=== PATIENT | female | born 1985 | race Caucasian/White ===

== ENCOUNTER → 2016-09-14 | Outpatient (CLI) | payer OTHER | LOC: BMCIMAGING 11:04 | PROVIDERS: ATTEND Registered Nurse General Practice | DX: M51.36 Other intervertebral disc degeneration, lumbar region (principal); M46.97 Unspecified inflammatory spondylopathy, lumbosacral region ==

== ENCOUNTER 2016-09-25 17:09 | Emergency (ER) | payer OTHER ==
[2016-09-25 17:17] VITALS: BP 131/95; PULSE 76; RESP 18; TEMP 98.2; O2SAT 97
--- NOTE | 2016-09-25 18:07 | EDPHY ---
H & P Stated Complaint: 2 weeks r scciatic type leg pain/seen x2 at ed's/meds not helping Time Seen by Provider: 09/25/16 17:26 HPI/ROS: CHIEF COMPLAINT: Right leg pain HISTORY OF PRESENT ILLNESS: 31-year-old female presents emergency department complaining of worsening right-sided buttock and leg pain. Patient reports she has been seen by her primary care doctor and Emergency Department in [place] and diagnosed with sciatica. Patient started a Medrol Dosepak yesterday and was prescribed baclofen. Patient reports her pain is not improving. She was referred to a neurosurgeon though has not made this appointment. Patient denies fevers, no loss of control of her bowel or bladder, no saddle anesthesias. Patient had "back surgery" 11 years ago for 2 herniated discs. She reports she has had residual numbness in her right foot since this time. Patient reports she also has chronic pain down this right leg though it is significantly worse over the past week. REVIEW OF SYSTEMS: A comprehensive 10 point review of systems is otherwise negative aside from elements mentioned in the history of present illness. Source: Patient Exam Limitations: No limitations - Personal History LMP (Females 10-55): Extended Cycle BCP/Inj Current Tetanus/Diphtheria Vaccine: Yes Tetanus Vaccine Date: WITHIN 10 YEARS - Medical/Surgical History Hx Asthma: No Hx Chronic Respiratory Disease: No Hx Diabetes: No Hx Cardiac Disease: No Hx Renal Disease: No Hx Cirrhosis: No Hx Alcoholism: No Hx HIV/AIDS: No Hx Splenectomy or Spleen Trauma: No Other PMH: back surg - Social History Smoking Status: Never smoked - Physical Exam Exam: Physical Exam Gen: Alert and Oriented, NAD HEENT: PERRL, moist mucous membranes NECK: no meningismus CV: regular rate and regular rhythm PULM: CTAB, no wheezes ABDOMEN: soft, non tender to palpation, BS present BACK: Mild midline tenderness to palpation to lumbar spine, bilateral SI joint tenderness to palpation NEURO: Right-sided patellar deep tendon reflex hyperactive, absent Achilles deep tendon reflex, normal on left, 5/5 strength bilateral lower extremities, positive straight leg raise bilaterally EXTREMITIES: normal appearing SKIN: no rash or break in skin on exposed skin PSYCH: answers questions appropriately. Constitutional: Initial Vital Signs Temperature (C) 36.8 C 09/25/16 17:14 Heart Rate 76 05/23/17 17:14 Respiratory Rate 18 09/25/16 17:14 Blood Pressure 131/95 H 09/25/16 17:14 O2 Sat (%) 97 09/25/16 17:14 O2 Delivery Mode Room Air Allergies/Adverse Reactions: No Known Allergies Allergy (Verified 09/25/16 17:12) Home Medications: Medication Instructions Recorded lamoTRIgine [LamICTAL 100 MG (RX)] 100 mg PO BID 08/30/12 Adderall 10 MG (*) 09/25/16 Ambien 09/25/16 Baclofen 09/25/16 Hydrocodone/APAP 5/325 [[place] 1 tab PO Q4H PRN #10 tab 09/25/16 5/325] Methylprednisolone 09/25/16 Nexplanon 09/25/16 Trintellix 09/25/16 Medical Decision Making ED Course/Re-evaluation: 31-year-old female history of herniated disc presents with right buttock pain radiating down her right leg. She started on a Medrol Dosepak yesterday and is taking baclofen which is not helping her pain. Patient has no signs of cauda equina syndrome. I will give her a small prescription for [place] and core strengthening exercises. She is to follow up with Neurosurgery at 1st available appointment. She has been given strict return precautions for any neurovascular compromise. Differential Diagnosis: The differential diagnosis for the patient's back pain included but was not limited to musculo-skeletal pain, epidural abscess, herniated disk, spinal fracture, cauda equina and intra-abdominal causes including urinary system. Departure - Departure Disposition: Home, Routine, Self-Care Clinical Impression: Lumbar radiculitis Condition: Good Instructions: Lumbar Radiculopathy (ED), Lower Back Exercises (ED), Core Strengthening Exercises (ED) Referrals: Alex Dennison MD [Medical Doctor] - As per Instructions (Neurosurgeon on-call) Prescriptions: Hydrocodone/APAP 5/325 [[place] 5/325] 1 tab PO Q4H PRN #10 tab PRN Reason: Pain, Moderate
== END 2016-09-25 18:35 | disposition home or self-care (01) ==
DX: M54.16 Radiculopathy, lumbar region (principal)

== ENCOUNTER 2016-11-20 05:39 | Day surgery (SDC) | payer OTHER ==
[2016-11-20] MEDS ORDERED: LR 1,000 ML IV ONE (06:03)
[2016-11-20] MEDS ORDERED: ROCURONIUM 50 MG/5 ML VIAL ONE (06:59)
[2016-11-20] MEDS ORDERED: DEXAMETHASONE 4 MG/ML VIAL ONE (06:59)
[2016-11-20] MEDS ORDERED: PROPOFOL 200 MG/20 ML VIAL ONE (07:00)
[2016-11-20] MEDS ORDERED: ceFAZolin 2 GM/DEXTROSE 100 ML IV ONE (07:00)
[2016-11-20] MEDS ORDERED: fentaNYL 100 MCG/2 ML INJ ONE (07:00)
[2016-11-20] MEDS ORDERED: LIDOCAINE 2% 5 ML SDV ONE (07:00)
[2016-11-20] MEDS ORDERED: ONDANSETRON 4 MG/2 ML VIAL ONE (07:00)
[2016-11-20] MEDS ORDERED: KETOROLAC 30 MG/1 ML SDV ONE (07:00)
[2016-11-20] MEDS ORDERED: BUPIVACAINE/EPI 0.25% 30 ML SDV ONE (07:03)
[2016-11-20] MEDS ORDERED: THROMBIN (BOVINE) 5,000 UNIT VIAL TP ONE (07:03)
[2016-11-20] MEDS ORDERED: BACITRACIN 50,000 UNITS/10 ML SYR IRR ONE (07:03)
[2016-11-20] MEDS ORDERED: MIDAZOLAM 2 MG/2 ML VIAL IVP ONE (07:10)
[2016-11-20] MEDS ORDERED: PROPOFOL/EMULSION 500 MG/50 ML BOTTLE IV ONE (07:12)
--- NOTE | 2016-11-20 07:12 | PDANEPAE ---
ANE History of Present Illness hnp ANE Past Medical History - Cardiovascular History Hx Hypertension: No Hx Arrhythmias: No Hx Chest Pain: No Hx Coronary Artery / Peripheral Vascular Disease: No Hx CHF / Valvular Disease: No Hx Palpitations: No - Pulmonary History Hx COPD: No Hx Asthma/Reactive Airway Disease: No Hx Recent Upper Respiratory Infection: No Hx Oxygen in Use at Home: No Hx Sleep Apnea: No Sleep Apnea Screening Result - Last Documented: Negative - Neurologic History Hx Cerebrovascular Accident: No Hx Seizures: No Hx Dementia: No Neurologic History Comment: previous cynthia - Endocrine History Hx Diabetes: No - Renal History Hx Renal Disorders: No - Liver History Hx Hepatic Disorders: No - Neurological & Psychiatric Hx Hx Neurological and Psychiatric Disorders: Yes Neurological / Psychiatric History Comment: anxiety. depression - Cancer History Hx Cancer: No - Congenital Disorder History Hx Congenital Disorders: No - GI History Hx Gastrointestinal Disorders: Yes Gastrointestinal History Comment: constipation - Other Health History Other Health History: wears glasses - Chronic Pain History Chronic Pain: Yes (lower back pain running down to feet) - Surgical History Prior Surgeries: previous cynthia. feliciano ANE Review of Systems - Exercise capacity METS (RN): 4 METS ANE Patient History - Allergies Allergies/Adverse Reactions: No Known Allergies Allergy (Verified 11/19/16 16:21) - Home Medications Home Medications: lamoTRIgine [LamICTAL 100 MG (RX)] 08/30/12 [Last Taken 11/20/16 0500] Adderall 10 MG (*) 09/25/16 [Last Taken 11/19/16 0900] Ambien 09/25/16 [Last Taken 11/19/16 2300] Nexplanon 09/25/16 [Last Taken 11/20/16] Trintellix 09/25/16 [Last Taken 11/19/16 0900] - NPO status NPO Since - Liquids (Date): 11/19/16 NPO Since - Liquids (Time): 19:00 NPO Since - Solids (Date): 11/19/16 NPO Since - Solids (Time): 19:00 - Anes Hx Anes Hx: no prior problems - Smoking Hx Smoking Status: Never smoked - Family Anes Hx Family Hx Anesthesia Complications: none ANE Labs/Vital Signs - Vital Signs Blood Pressure: 119/84 Heart Rate: 81 Respiratory Rate: 16 O2 Sat (%): 96 Height: 170.18 cm Weight: 63.503 kg ANE Physical Exam - Airway Mallampati Score: Class 2 Mouth exam: normal dental/mouth exam - Pulmonary Pulmonary: no respiratory distress - Cardiovascular Cardiovascular: regular rate and rhythym - ASA Status ASA Status: I ANE Anesthesia Plan Anesthesia Plan: general endotracheal anesthesia
--- NOTE | 2016-11-20 07:25 | PDHPUP ---
History & Physical Update H&P update statement: This history and physical update is based on an assessment of the patient which was completed after admission or registration (within 24 hours), but prior to the surgery/procedure. H&P update: H&P reviewed & patient examined, no change in patient's condition since H&P completed
[2016-11-20] MEDS ORDERED: BUPIVACAINE 0.25% 30 ML SDV ONE (08:24)
[2016-11-20] MEDS ORDERED: SUGAMMADEX SODIUM 200 MG/2 ML VIAL IVP ONE (08:46)
[2016-11-20] MEDS ORDERED: NALOXONE HCL 0.4 MG/ML INJ IVP PRN (08:49)
[2016-11-20] MEDS ORDERED: ONDANSETRON 4 MG/2 ML VIAL IVP PRN (08:49)
[2016-11-20] MEDS ORDERED: MEPERIDINE 25 MG/ML SYR IVP PRN (08:49)
[2016-11-20] MEDS ORDERED: fentaNYL 100 MCG/2 ML INJ IVP PRN (08:49)
[2016-11-20] MEDS ORDERED: OXYCODONE/APAP 5/325 TAB PO PRN (08:49)
[2016-11-20] MEDS ORDERED: LR 500 ML IV PRN (08:49)
[2016-11-20] MEDS ORDERED: HYDROmorphONE/DILAUDID 1 MG/ML SYR IVP PRN (08:49)
--- NOTE | 2016-11-20 09:08 | POSTANESTH ---
Post Anesthetic Evaluation Cardiovascular Status: Normal, Stable Respiratory Status: Normal, Stable Level of Consciousness/Mental Status: Can Participate in Eval Pain Control: Adequate, Prn Tx Ordered Nausea/Vomiting Control: Adequate, Prn Tx Ordered Complications Possibly Related to Anesthesia: None Noted
[2016-11-20] MEDS ORDERED: KETOROLAC 15 MG/1 ML SDV IVP PRN (09:17)
[2016-11-20] MEDS ORDERED: HYDROCODONE/APAP 5/325 TAB PO PRN (09:17)
[2016-11-20] MEDS ORDERED: METHOCARBAMOL 750 MG TAB PO PRN (09:18)
--- NOTE | 2016-11-20 09:22 | POSTOPPROG ---
Post Op Note Date of Operation: 11/20/16 Surgeon: Alex Dennison Senior Software Engineering Manager: Sherrie Fry Anesthesia: GET(General Endotracheal) Pre-op Diagnosis: Herniated nucleus pulposis Post-op Diagnosis: same Procedure: L5/S1 right sided microdiscectomy and hemilaminectomy Findings: See operative report dictated by Dr. Dennison Inf/Abcess present in the surg proc area at time of surgery?: No Depth: Organ Space EBL: Minimal (10mL) Complications: None SOAP Progress Note Assessment/Plan: Assessment: Plan: s: Patient in PACU. Stable with expected back pain. O: NAD, VSS PERRL, EOMI CN II-XII grossly intact MARTINEZ X4 BLE 5/5 Incision c/d/i- dressed A: 31 yo female sp L5/S1 microdiscectomy and right sided hemilami for HNP at L5/ S1 P: Discharge home when PACU criteria met Advance diet as tolerated Optimize pain on oral pain meds No bending, lifting twisting more than 5-10 pounds Patient seen by Dr. Dennison in PACU 11/20/16 09:20 Objective: Vital Signs Temp Pulse Resp BP Pulse Ox 36.5 C 81 20 125/72 H 100 11/20/16 06:20 11/20/16 07:11 11/20/16 09:16 11/20/16 09:15 11/20/16 09:16
[2016-11-20 10:06] VITALS: BP 126/78
[2016-11-20 10:50] VITALS: PULSE 85; RESP 16
[2016-11-20 10:57] VITALS: TEMP 97.5; O2SAT 98
--- NOTE | 2016-11-20 16:32 | GOP ---
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 POSTOPERATIVE DIAGNOSIS: Recurrent right L5-S1 disc herniation with S1 radiculopathy. PROCEDURE PERFORMED: 1. Re-do right L5-S1 microdiskectomy. 2. Use of the operative microscope. 3. Intraoperative neurophysiologic monitoring including somatosensory evoked potentials and free ru nning EMG. FINDINGS: Large herniated nucleus pulposus. SPECIMENS: None. ESTIMATED BLOOD LOSS: 15 cc. INDICATIONS: The patient is a 31-year-old woman who presented to the office with a right S1 radicul opathy. She had previously had a microdiskectomy several years back, and has now had recurrent symp toms. An MRI showed a large extruded disc fragment with significant compression of the S1 nerve amber t. She did try physical therapy and a steroid injection with some mild relief but overall, her pain is still significant. We booked her electively for today. DESCRIPTION OF PROCEDURE: After informed consent was obtained from the patient, the patient was bro ught to the operating room and a formal time-out was performed, identifying the patient by name, [facility], and date of . Preoperative antibiotics were given. The endotracheal tube was placed and general endotracheal anesthesia was smoothly induced. The patient was then turned into the prone position on the Uday frame with the lumbar spine in fle xion. The previous surgical incision was marked. A lateral x-ray was used to confirm the level and that the incision would be adequate. The lumbar region was then prepped and draped in normal steri le fashion. A portion of the slightly larger incision was used, spanning the L5-S1 disc space. Thi s was incised using a 10-blade and the subcutaneous tissues were dissected using monopolar electroca utery. The L5 spinous process was identified and the paraspinous muscles were taken down from the s pinous process on the right side. There was some scar tissue in the area, and we carefully avoided any laminotomy defect. As it turns out, either from bone regrowth or the prior surgery, there was n ot very much of a laminectomy defect in that area. We did place a marker and identified that we wer e again at the correct level. Self-retaining retractors were then placed and the operative microscope was brought onto the field. First, a high-speed drill was used to drill a hemilaminotomy defect in the L5 lamina. The medial f acet was also drilled to about 20% of the entire facet joint. This exposed the S1 traversing nerve root, which was seen to be bulging backward at the disc space. We carefully then dissected some of the scar tissue around the nerve root under the microscope, and the nerve root was retracted mediall y. A rent in the scar tissue was visualized and the disk was seen protruding. Using micro forceps and pituitary rongeurs, the disc was then removed completely. We were able to feel under the nerve root using a micro dissector, and no further disc was palpated. The nerve was completely free throu ghout the space and crossing the disc space. A few extra free fragments of disk were removed from w ithin the L5-S1 disc space. A few pieces of Marcaine-soaked Gelfoam were then placed over the nerve root and allowed to sit in place for about 2 minutes, after which time, they were removed. The wound was copiously irrigated using bacitracin irrigation. The fascia was closed using interrup kaylin 2-0 Vicryl. The deep dermis was closed using interrupted 2-0 Vicryl, and the skin was closed us ing Dermabond. The patient was then turned back into the supine position where she was extubated, a nd she was taken to the PACU in stable condition. There were no operative complications. All neuro physiological monitoring was at baseline throughout the case. There were no complications. FLUIDS AND URINE OUTPUT: Per the Anesthesia record. DRAINS: None. /[id number]/MODL
== END 2016-11-20 10:55 | disposition home or self-care (01) ==
LOC: FSGY 05:39
PROVIDERS: ATTEND Neurological Surgery
PROC: 0ST40ZZ Resection of Lumbosacral Disc, Open Approach (ICD-10-PCS; principal; 2016-11-20 07:15)
PROC: 01NB0ZZ Release Lumbar Nerve, Open Approach (ICD-10-PCS; principal; 2016-11-20 07:15)
DX: M51.27 Other intervertebral disc displacement, lumbosacral region (principal); M54.17 Radiculopathy, lumbosacral region
CPT/HCPCS: J0690; J1100; J1885; J2250; J2405; J2704; J3010

== ENCOUNTER 2017-04-18 17:40 | Emergency (ER) | payer OTHER ==
[2017-04-18 17:46] VITALS: RESP 16
[2017-04-18] MEDS ORDERED: ONDANSETRON DISINTEGRATING 4 MG TAB PO ONE (17:47)
[2017-04-18] MEDS ORDERED: NS 1,000 ML IV ONE (18:46)
[2017-04-18] MEDS ORDERED: GASTROVIEW 30 ML UNIT PO ONE (18:57)
--- NOTE | 2017-04-18 18:59 | EDPHY ---
H & P Stated Complaint: n/v Time Seen by Provider: 04/18/17 18:35 HPI/ROS: CHIEF COMPLAINT: Nausea and vomiting x2 months HISTORY OF PRESENT ILLNESS: The patient is a 32 y/o female with a long history of chronic constipation and anorexia nervosa complaining of intermittent nausea and vomiting for the last couple months that has gradually worsened. She initially had half-day episodes of vomiting once per week that have become more frequent and are lasting longer. She vomited three times today and describes bilious emesis and "fecal" emesis. She tried to drink water once today and vomited 30 minutes later. She has not tried to eat. She denies abdominal pain, fever. She has not been evaluated by GI for these nausea and vomiting episodes. She denies chance of . She developed chronic constipation following anorexia and laxative abuse in high school. She has been evaluated by multiple GI physicians and had a colonoscopy in September. She was told she had a "tortuous" colon, but otherwise normal colonoscopy. She states she is abusing laxatives now because "it's the only way I can go." Her last normal bowel movement was 1 week ago and everything since then has been "runny." She also mentions a decreased appetite for the last month. She does not believe she is having a resurgence of her anorexia and denies attempting to lose weight or actual weight loss. REVIEW OF SYSTEMS: Constitutional: No fever, no chills Eyes: No visual changes ENT: No sore throat Respiratory: No cough, no shortness of breath Cardiac: No chest pain Gastrointestinal: see HPI Genitourinary: No hematuria, no dysuria Musculoskeletal: No leg pain or swelling Skin: No rash Neurological: No headache, no numbness, no weakness Psychiatric: No depression - Personal History LMP (Females 10-55): 8-14 Days Ago Current Tetanus/Diphtheria Vaccine: Yes Current Tetanus Diphtheria and Acellular Pertussis (TDAP): Yes Tetanus Vaccine Date: WITHIN 10 YEARS - Medical/Surgical History PMH: PMH includes: 1. Depression 2. Anxiety 3. History of anorexia nervosa and laxative abuse 4. Cholecystectomy 5. Chronic constipation Hx Asthma: No Hx Chronic Respiratory Disease: No Hx Diabetes: No Hx Cardiac Disease: No Hx Renal Disease: No Hx Cirrhosis: No Hx Alcoholism: No Hx HIV/AIDS: No Hx Splenectomy or Spleen Trauma: No Other PMH: back surg L5 S1, feliciano, depression, anxiety - Social History Smoking Status: Never smoked Additional Social History: Nonsmoker. Lives in [place]. Employed. - Physical Exam Exam: General Appearance: Alert, pleasant, non-toxic Eyes: Pupils equal and round, no conjunctival pallor or injection ENT, Mouth: Mucous membranes moist Neck: Normal inspection Respiratory: Lungs are clear to auscultation Cardiovascular: Regular rate and rhythm Gastrointestinal: Abdomen is soft and non-tender Neurological: A&O, nonfocal, normal gait Skin: Warm and dry Extremities: Nontender, no pedal edema Psychiatric: Mood and affect normal Constitutional: Initial Vital Signs Temperature (C) 36.8 C 04/18/17 17:43 Heart Rate 105 H 04/18/17 17:43 Respiratory Rate 16 04/18/17 17:43 Blood Pressure 123/85 H 04/18/17 17:43 O2 Sat (%) 98 04/18/17 17:43 O2 Delivery Mode Room Air Allergies/Adverse Reactions: No Known Allergies Allergy (Verified 04/18/17 17:43) Home Medications: Medication Instructions Recorded lamoTRIgine [LamICTAL 100 MG (*)] 08/30/12 Adderall 10 MG (*) 09/25/16 Ambien 09/25/16 Nexplanon 09/25/16 Trintellix 09/25/16 Ondansetron Odt [Zofran Odt 4 mg 4 mg PO Q4 PRN #10 tab 04/18/17 (*)] Medical Decision Making - Diagnostics Imaging: Discussed imaging studies w/ fisher scallop Radiologist, I viewed and interpreted images myself ED Course/Re-evaluation: This is a 32 y/o female with a history of anorexia nervosa and chronic constipation who presents with a couple-month history of intermittent and gradually worsening nausea and vomiting. She reports requiring constant laxatives to be able to have any bowel movement and is currently passing "runny stool." She has not been able to keep fluid down today and has not attempted to eat. I suspect her presentation may be a manifestation of her prior anorexia diagnosis, but she states she is not trying to lose weight and does not think her symptoms are related to a recurring eating disorder. Her abdomen is benign and she does not appear significantly dehydrated or thin here. Given fecal emesis, I'm concerned for obstructive lesion, CT with oral contrast ordered. 4mg IV Zofran and 1L IV NS administered. CT shows mild constipation, possible ruptured right ovarian cyst, no obstruction. Reassessed patient and discussed results. Her abdomen remains benign. She has not vomited here since Zofran administration. Relieved with CT results. I've recommended a clear liquid diet over the next 24 hours and follow up with GI early next week. She will receive a script for Zofran to use as needed. Return precautions discussed. She agrees with this plan. Abd remains soft and NT on d/ c. Differential Diagnosis: includes though not limited to SBO, gastric outlet obstruction, bulemia, AGE, appy, bowel perforation, severe constipation - Data Points Laboratory Results: Laboratory Results 04/18/17 18:40 04/18/17 18:40 Medications Given: Discontinued Medications Diatrizoate Meglum/Diatrizoate Sod (Gastroview 66-10 Soln) 30 ml PO EDNOW ONE Stop: 04/18/17 18:58 Last Admin: 04/18/17 19:46 Dose: Not Given Sodium Chloride (Ns) 1,000 mls @ 0 mls/hr IV EDNOW ONE; Wide Open PRN Reason: Protocol Stop: 04/18/17 18:47 Last Admin: 04/18/17 19:00 Dose: 1,000 mls Ondansetron HCl (Zofran Odt) 4 mg PO EDNOW ONE Stop: 04/18/17 17:48 Last Admin: 04/18/17 17:48 Dose: 4 mg Ondansetron HCl (Zofran Odt 4 Mg Prepack#2) 1 btl TAKEHOME EDNOW ONE Stop: 04/18/17 19:57 Last Admin: 04/18/17 20:12 Dose: 1 btl Departure - Departure Disposition: Home, Routine, Self-Care Clinical Impression: Chronic constipation Nausea and vomiting Qualifiers: Vomiting type: bilious vomiting Qualified Code(s): R11.14 - Bilious vomiting Condition: Good Instructions: Ondansetron (By mouth), Constipation (ED), Acute Nausea and Vomiting (ED) Additional Instructions: 1. Take Zofran as prescribed when needed for nausea and vomiting. 2. Consume clear liquids only over the next 24 hours. 3. Follow up with your patrol inspector in the next 2-3 days. I recommend calling first thing tomorrow morning to schedule an appointment. 4. Return to the ED for any worsening of condition. Referrals: Savannah Lewis FNP [Primary Care Provider] - As per Instructions Esdras Loredo MD [Medical Doctor] - As per Instructions Prescriptions: Ondansetron Odt [Zofran Odt 4 mg (*)] 4 mg PO Q4 PRN #10 tab PRN Reason: Nausea Report Scribed for: Daniel Alberto Report Scribed by: Nikki Aguilar Date of Report: 04/18/17 Time of Report: 18:59 Physician Review and Approval Statement: 04/18/17 18:59 Portions of this note were transcribed by a medical scientist. I personally performed a history, physical exam, medical decision making, and confirmed accuracy of information the transcribed note.
[2017-04-18 19:02] LABS: % IMMATURE GRANULYOCYTES 0.1 % (0.0-1.1); ABSOLUTE IMMATURE GRANULOCYTES 0.01 10^3/uL (0.00-0.10); ADD DIFF? NO; ADD MORPH? NO; ADD SCAN? NO; ATYPICAL LYMPHOCYTE FLAG 10 (0-99); FRAGMENT RBC FLAG 0 (0-99); HEMATOCRIT 40.2 % (38.0-47.0); HEMOGLOBIN 13.7 g/dL (12.6-16.3); LEFT SHIFT FLG 0 (0-99); LIPEMIA HEMOLYSIS FLAG 90 (0-99); MEAN CELL HEMOGLOBIN 30.1 pg (27.9-34.1); MEAN CELL HEMOGLOBIN CONCENTR. 34.1 g/dL (32.4-36.7); MEAN CELL VOLUME 88.4 fL (81.5-99.8); MEAN PLATELET VOLUME 11.9 fL (8.7-11.7); PLATELET CLUMPS FLAG 0 (0-99); PLATELET COUNT 282 10^3/uL (150-400); RED BLOOD CELL COUNT 4.55 10^6/uL (4.18-5.33); RED CELL DISTRIBUTION WIDTH 12.7 % (11.5-15.2)
[2017-04-18 19:09] LABS: ALANINE AMINOTRANSFERASE 25 IU/L (9-52); ALKALINE PHOSPHATASE 44 IU/L (38-126); ANION GAP 12 mEq/L (8-16); ASPARTATE AMINOTRANSFERASE 15 IU/L (14-46); BILIRUBIN,TOTAL 0.3 mg/dL (0.1-1.4); BILIRUBIN-CONJUGATED 0.1 mg/dL (0.0-0.5); BILIRUBIN-UNCONJUGATED 0.2 mg/dL (0.0-1.1); CALCIUM 9.9 mg/dL (8.5-10.4); CARBON DIOXIDE 24 mEq/l (22-31); CHLORIDE 103 mEq/L (97-110); CREATININE 1.2 mg/dL (0.6-1.0); GLOMERULAR FILTRATION RATE 53; GLUCOSE 90 mg/dL (70-100); SODIUM 139 mEq/L (134-144); TOTAL PROTEIN 6.3 g/dL (6.3-8.2)
[2017-04-18] MEDS ORDERED: IOPAMIDOL (ISOVUE-300) 100 ML BTL ONE (19:16)
[2017-04-18] MEDS ORDERED: ONDANSETRON 4MG PREPACK#2 BTL TAKEHOME ONE (19:56)
[2017-04-18 20:15] VITALS: BP 119/69; PULSE 80; TEMP 98.1; O2SAT 97
== END 2017-04-18 20:15 | disposition home or self-care (01) ==
DX: R11.2 Nausea with vomiting, unspecified (principal); K59.09 Other constipation; E86.9 Volume depletion, unspecified; Z90.49 Acquired absence of other specified parts of digestive tract
CPT/HCPCS: Q9967

== ENCOUNTER 2017-06-15 00:59 | Emergency (ER) | payer OTHER ==
[2017-06-15 01:08] VITALS: O2SAT 96
[2017-06-15] MEDS ORDERED: NS 1,000 ML IV ONE (01:21)
[2017-06-15] MEDS ORDERED: ONDANSETRON 4 MG/2 ML VIAL IVP ONE (01:21)
--- NOTE | 2017-06-15 01:22 | EDPHY ---
H & P Stated Complaint: vomiting intermittantly xmonths unable to find dx, Time Seen by Provider: 06/15/17 01:15 HPI/ROS: Chief Complaint: Vomiting, abdominal pain HPI: 32-year-old woman presenting with vomiting since yesterday morning at 8 o' clock. She has been unable to keep anything down. She has been dealing with vomiting and constipation for the last several months but has never been this severe. She is having some moderate low abdominal pain, primarily on the right. No fevers or chills. Has had some constipation. No blood in her vomit or coffee-grounds. No dark tarry stools or blood in her stool. Last menstrual. Is now. No fevers or chills. No chest pain or shortness of breath ROS: 10 point Review of Systems is negative except as noted in the HPI. PMH: Cholecystectomy Social History: No smoking, occasional alcohol, no recreational drug use Family History: non-contributory Physical Exam: Gen: Awake, Alert, No Distress HEENT: Nose: no rhinorrhea Eyes: PERRLA, EOMI Mouth: Moist mucosa Neck: Supple, no JVD Chest: nontender, lungs clear to auscultation Heart: S1, S2 normal, no murmur Abd: Soft, she has tenderness right lower quadrant with guarding, no rebound Back: no CVA tenderness, no midline tenderness Ext: no edema, non-tender Skin: no rash Neuro: CN II-XII intact, Sensation grossly intact, Strength 5/5 in bilateral upper and lower extremities - Personal History Current Tetanus Diphtheria and Acellular Pertussis (TDAP): Yes Tetanus Vaccine Date: WITHIN 10 YEARS - Medical/Surgical History Hx Asthma: No Hx Chronic Respiratory Disease: No Hx Diabetes: No Hx Cardiac Disease: No Hx Renal Disease: No Hx Cirrhosis: No Hx Alcoholism: No Hx HIV/AIDS: No Hx Splenectomy or Spleen Trauma: No Other PMH: back surg L5 S1, feliciano, depression, anxiety, intermitant vomiting - Social History Smoking Status: Never smoked Constitutional: Initial Vital Signs Temperature (C) 36.5 C 06/15/17 01:05 Heart Rate 92 06/15/17 01:05 Respiratory Rate 18 06/15/17 01:05 Blood Pressure 128/89 H 06/15/17 01:05 O2 Sat (%) 96 06/15/17 01:05 O2 Delivery Mode Room Air Allergies/Adverse Reactions: No Known Allergies Allergy (Verified 04/18/17 17:43) Home Medications: Medication Instructions Recorded lamoTRIgine [LamICTAL 100 MG (*)] 08/30/12 Adderall 10 MG (*) 09/25/16 Ambien 09/25/16 Nexplanon 09/25/16 Trintellix 09/25/16 Ambien 06/15/17 Medical Decision Making - Diagnostics Imaging Results: Abdominal ultrasound shows a normal appendix and a normal right ovary per Dr. Brooks. ED Course/Re-evaluation: Patient is now improved. Abdomen is soft and benign. No further vomiting. She is tolerating p.o.. Will discharge with follow-up with primary care physician, return for any concerns. - Data Points Laboratory Results: Laboratory Results 06/15/17 00:18 06/15/17 00:18 06/15/17 06/15/17 06/15/17 00:18 00:18 00:18 WBC 10.56 10^3/uL H 10^3/uL (3.80-9.50) RBC 5.03 10^6/uL 10^6/uL (4.18-5.33) Hgb 14.9 g/dL g/dL (12.6-16.3) Hct 44.3 % % (38.0-47.0) MCV 88.1 fL fL (81.5-99.8) MCH 29.6 pg pg (27.9-34.1) MCHC 33.6 g/dL g/dL (32.4-36.7) RDW 12.9 % % (11.5-15.2) Plt Count 354 10^3/uL 10^3/uL (150-400) MPV 12.0 fL H fL (8.7-11.7) Neut % (Auto) 66.1 % % (39.3-74.2) Lymph % (Auto) 24.0 % % (15.0-45.0) Fisher % (Auto) 6.8 % % (4.5-13.0) Eos % (Auto) 2.1 % % (0.6-7.6) Baso % (Auto) 0.7 % % (0.3-1.7) Nucleat RBC Rel Count 0.0 % % (0.0-0.2) Absolute Neuts (auto) 6.99 10^3/uL H 10^3/uL (1.70-6.50) Absolute Lymphs (auto) 2.53 10^3/uL 10^3/uL (1.00-3.00) Absolute Monos (auto) 0.72 10^3/uL 10^3/uL (0.30-0.80) Absolute Eos (auto) 0.22 10^3/uL 10^3/uL (0.03-0.40) Absolute Basos (auto) 0.07 10^3/uL 10^3/uL (0.02-0.10) Absolute Nucleated RBC 0.00 10^3/uL 10^3/uL (0-0.01) Immature Gran % 0.3 % % (0.0-1.1) Immature Gran # 0.03 10^3/uL 10^3/uL (0.00-0.10) Sodium 144 mEq/L mEq/L (135-145) Potassium 3.8 mEq/L mEq/L (3.5-5.2) Chloride 107 mEq/L mEq/L (97-110) Carbon Dioxide 20 mEq/l L mEq/l (22-31) Anion Gap 17 mEq/L H mEq/L (8-16) BUN 12 mg/dL mg/dL (7-23) Creatinine 1.0 mg/dL mg/dL (0.6-1.0) Estimated GFR > 60 Glucose 127 mg/dL H mg/dL (70-100) Calcium 10.1 mg/dL mg/dL (8.5-10.4) Beta HCG, Qual NEGATIVE Medications Given: Discontinued Medications Sodium Chloride (Ns) 1,000 mls @ 0 mls/hr IV ONCE ONE; Wide Open PRN Reason: Protocol Stop: 06/15/17 01:22 Last Admin: 06/15/17 01:45 Dose: 1,000 mls Ondansetron HCl (Zofran) 4 mg IVP EDNOW ONE Stop: 06/15/17 01:22 Last Admin: 06/15/17 02:06 Dose: 4 mg Departure - Departure Disposition: Home, Routine, Self-Care Clinical Impression: Nausea and vomiting Condition: Good Instructions: Acute Nausea and Vomiting (ED) Additional Instructions: Follow up with primary care provider in 2-3 days for further evaluation. Return to the emergency department for increasing abdominal pain, nausea vomiting, fevers, chills, or any other concerns. Referrals: Savannah Lewis FNP [Primary Care Provider] - As per Instructions
[2017-06-15 01:26] LABS: PLATELET COUNT 354 10^3/uL (150-400)
[2017-06-15 03:33] VITALS: BP 126/67; PULSE 76; RESP 16; TEMP 97.9
== END 2017-06-15 03:27 | disposition home or self-care (01) ==
DX: R11.2 Nausea with vomiting, unspecified (principal); E86.9 Volume depletion, unspecified; Z90.49 Acquired absence of other specified parts of digestive tract
CPT/HCPCS: 96374; J2405